=== PATIENT | male | born 1945 | race African-American/Black ===

== ENCOUNTER 2016-07-28 19:22 | Emergency (ER) | payer MEDICARE, MEDICAID ==
[~2016-07-28] VITALS: Ht 177.8 cm; Wt 83.0 kg
[~2016-07-28 19:22] MED LIST: ASPI-1035 PO; DOXA2TAB2 PO; LOSA100T14 PO; NEPVIT PO; [UNRECOGNIZED DRUG - OTHER] PO
[2016-07-28] MEDS ORDERED: SODIUM CHLORIDE 0.9% 1,000 ML IV ONE (20:29)
[2016-07-28 20:42] LABS: CLARITY URINE CLEAR (CLEAR); COLOR URINE YELLOW (YELLOW); GLUCOSE URINE NEGATIVE (NEGATIVE); KETONES URINE NEGATIVE (NEGATIVE); LEUKOCYTE ESTERASE URINE TRACE (NEGATIVE); NITRITE URINE NEGATIVE (NEGATIVE); OCCULT BLOOD URINE NEGATIVE (NEGATIVE); PH URINE 5.5 (4.5-8.0); PROTEIN URINE NEGATIVE (NEGATIVE); SPECIFIC GRAVITY URINE 1.017 (1.005-1.030); UROBILINOGEN URINE 0.2 E.U./dL (0.2-1.0)
[2016-07-28 20:51] LABS: BASOPHILS % 0.7 % (0.0-2.0); HEMATOCRIT. 36.2 % (42.0-52.0); HEMOGLOBIN. 12.1 g/dL (14.0-18.0); LYMPHOCYTES % 21.1 % (20.0-50.0); MEAN CORPUSCULAR HEMOGLOBIN 29.9 pg (28.0-32.0); MEAN CORPUSCULAR HGB CONC 33.4 g/dL (31.0-37.0); MEAN CORPUSCULAR VOLUME 89.5 fL (80.0-94.0); MEAN PLATELET VOLUME 7.3 fl (7.4-10.4); MONOCYTES % 6.8 % (2.0-8.0); NEUTROPHILS % 66.4 % (40.0-76.0); PLATELET 182 x1000/uL (130-400); RED BLOOD CELL COUNT 4.05 mill/uL (4.7-6.1); RED CELL DISTRIBUTION WIDTH 14.6 % (11.6-14.6); WHITE BLOOD COUNT 4.8 x1000/uL (4.5-11.0)
[2016-07-28 20:54] LABS: CHLORIDE 108 mEq/L (98-107)
[2016-07-28 20:59] LABS: INR 1.1; PROTHROMBIN TIME 11.1 sec
[2016-07-28 21:03] LABS: ALANINE AMINOTRANSFERASE 19 IU/L (13-61); ALBUMIN 3.8 g/dL (3.4-5.0); ANION GAP 12; CALCIUM 8.8 mg/dL (8.5-10.1); CARBON DIOXIDE 25 mEq/L (21-32); INDEX HEMOLYSI 1 (1-3); INDEX ICTERIC 1 (1-4); INDEX LIPEMIC 1 (1-3); LIPASE 109 IU/L (73-393); UREA NITROGEN BLOOD 13 mg/dL (7-21); eGFR > 60 mL/min (>60)
[2016-07-28 21:05] LABS: BACTERIA URINE TRACE; RBC URINE NONE SEEN /hpf (0-2); SQUAMOUS EPITHELIAL CELL URINE RARE /lpf (RARE/1+); WBC URINE 0-2 /hpf (0-2)
[2016-07-28 21:06] LABS: TROPONIN I < 0.02 ng/mL (0.00-0.04)
[2016-07-28 22:00] VITALS: BP 160/99
== END 2016-07-28 23:46 | disposition home or self-care (01) ==
LOC: ER 19:22
DX: N28.9 Disorder of kidney and ureter, unspecified (principal); R51 Headache; M54.5 Low back pain; I10 Essential (primary) hypertension; I45.10 Unspecified right bundle-branch block; E78.00 Pure hypercholesterolemia, unspecified; Z85.53 Personal history of malignant neoplasm of renal pelvis; Z90.5 Acquired absence of kidney; Z88.6 Allergy status to analgesic agent; Z88.3 Allergy status to other anti-infective agents; Z86.73 Personal history of transient ischemic attack (TIA), and cerebral infarction without residual deficits
CPT/HCPCS: 36415; 74176; 80053; 81001; 83605; 83690; 84484; 85025; 85610; 93005; 96360; 96361; 99285; J7030

== ENCOUNTER 2016-11-28 18:10 | Inpatient (IN) | payer MEDICARE, MEDICAID ==
[~2016-11-28] VITALS: Ht 177.8 cm; Wt 81.2 kg
[~2016-11-28 18:10] MED LIST changes: -ASPI-1035 PO; +ASPI-1159 PO; +HYDR12.54 PO; +SULF200O PO; +TRAM50TA3 PO; -[UNRECOGNIZED DRUG - OTHER] PO
[2016-11-28] MEDS ORDERED: ASPIRIN 325MG EC TABLET PO ONE (20:30)
[2016-11-28] MEDS ORDERED: LOSARTAN POTASSIUM 50 MG TABLET PO ONE (20:30)
[2016-11-28 20:45] LABS: BASOPHILS % 0.6 % (0.0-2.0); EOSINOPHILS % 4.5 % (0.0-5.0); HEMATOCRIT. 32.5 % (42.0-52.0); LYMPHOCYTES % 21.4 % (20.0-50.0); MEAN CORPUSCULAR HEMOGLOBIN 29.8 pg (28.0-32.0); MEAN CORPUSCULAR VOLUME 87.9 fL (80.0-94.0); MONOCYTES % 8.4 % (2.0-8.0); NEUTROPHILS % 65.1 % (40.0-76.0); PLATELET 145 x1000/uL (130-400); RED CELL DISTRIBUTION WIDTH 14.9 % (11.6-14.6)
[2016-11-28 20:52] LABS: INR 1.1; PROTHROMBIN TIME 11.2 sec
[2016-11-28 20:53] LABS: CHLORIDE 108 mEq/L (98-107)
[2016-11-28 21:02] LABS: CARBON DIOXIDE 26 mEq/L (21-32); TROPONIN I < 0.02 ng/mL (0.00-0.04)
[2016-11-29 00:18] LABS: CLARITY URINE CLEAR (CLEAR); COLOR URINE YELLOW (YELLOW); GLUCOSE URINE NEGATIVE (NEGATIVE); KETONES URINE NEGATIVE (NEGATIVE); LEUKOCYTE ESTERASE URINE NEGATIVE (NEGATIVE); NITRITE URINE NEGATIVE (NEGATIVE); OCCULT BLOOD URINE NEGATIVE (NEGATIVE); PH URINE 5.5 (4.5-8.0); PROTEIN URINE NEGATIVE (NEGATIVE); SPECIFIC GRAVITY URINE 1.012 (1.005-1.030); UROBILINOGEN URINE 0.2 E.U./dL (0.2-1.0)
[2016-11-29 00:38] LABS: *AMPHETAMINES SCREEN URINE NEGATIVE (NEGATIVE); *BARBITURATES SCREEN URINE NEGATIVE (NEGATIVE); *BENZODIAZEPINES SCREEN URINE NEGATIVE (NEGATIVE); *COCAINE SCREEN URINE NEGATIVE (NEGATIVE); CANNABINOID URINE SCREEN NEGATIVE (NEGATIVE); METHADONE URINE SCREEN NEGATIVE (NEGATIVE); OPIATES URINE SCREEN NEGATIVE (NEGATIVE); PHENCYCLIDINE URINE SCREEN NEGATIVE (NEGATIVE)
[2016-11-29] MEDS ORDERED: FUROSEMIDE 20MG TABLET PO ONE (02:45)
[2016-11-29 05:00] VITALS: BP 155/79
[2016-11-29 05:33] VITALS: BP 155/79
[2016-11-29 08:00] VITALS: BP 162/81
[2016-11-29] MEDS: ENOXAPARIN 40MG/0.4ML SYR SUBCUT SCH (08:43)
[2016-11-29] MEDS: BISACODYL 5MG TABLET PO SCH (08:43)
[2016-11-29] MEDS: FUROSEMIDE 40MG TABLET PO SCH ×2 (08:45→20:15)
[2016-11-29] MEDS ORDERED: LACTULOSE 20G/30ML UDC PO SCH (09:00)
[2016-11-29 12:04] VITALS: BP 141/99
[2016-11-29 16:00] VITALS: BP 151/85
[2016-11-29 20:00] VITALS: BP 132/77
[2016-11-29 20:05] LABS: EOSINOPHILS % 3.2 % (0.0-5.0); HEMATOCRIT. 34.2 % (42.0-52.0); HEMOGLOBIN. 11.4 g/dL (14.0-18.0); LYMPHOCYTES % 18.7 % (20.0-50.0); MEAN CORPUSCULAR HEMOGLOBIN 29.7 pg (28.0-32.0); MEAN CORPUSCULAR VOLUME 89.2 fL (80.0-94.0); MEAN PLATELET VOLUME 8.1 fl (7.4-10.4); MONOCYTES % 6.7 % (2.0-8.0); NEUTROPHILS % 70.4 % (40.0-76.0); PLATELET 161 x1000/uL (130-400); RED BLOOD CELL COUNT 3.83 mill/uL (4.7-6.1); RED CELL DISTRIBUTION WIDTH 14.8 % (11.6-14.6)
[2016-11-29 20:11] LABS: CARBON DIOXIDE 26 mEq/L (21-32); CHLORIDE 104 mEq/L (98-107)
[2016-11-30] VITALS: BP 119/82
[2016-11-30 03:51] VITALS: BP 126/68
[2016-11-30 08:00] VITALS: BP 147/90
[2016-11-30] MEDS: BISACODYL 5MG TABLET PO SCH (08:45)
[2016-11-30] MEDS: ENOXAPARIN 40MG/0.4ML SYR SUBCUT SCH (08:45)
[2016-11-30] MEDS: FUROSEMIDE 40MG TABLET PO SCH (08:45)
[2016-11-30 12:00] VITALS: BP 119/78
[2016-11-30 15:16] VITALS: BP 119/78
[2016-11-30 16:00] VITALS: BP 123/85
== END 2016-11-30 16:43 | disposition home or self-care (01) | DRG 194 ==
LOC: ER 18:10 → 5WST 11-29 02:17 → EDBEDREQ 11-29 02:30
PROVIDERS: ADMIT Family Medicine; ATTEND Family Medicine
DX: I13.0 Hypertensive heart and chronic kidney disease with heart failure and stage 1 through stage 4 chronic kidney disease, or unspecified chronic kidney disease (principal); E86.0 Dehydration; I50.23 Acute on chronic systolic (congestive) heart failure; D64.9 Anemia, unspecified; E78.5 Hyperlipidemia, unspecified; I25.10 Atherosclerotic heart disease of native coronary artery without angina pectoris; N18.9 Chronic kidney disease, unspecified; Z85.528 Personal history of other malignant neoplasm of kidney; Z90.5 Acquired absence of kidney; Z87.891 Personal history of nicotine dependence; Z87.440 Personal history of urinary (tract) infections; Z88.6 Allergy status to analgesic agent; Z88.1 Allergy status to other antibiotic agents; Z79.899 Other long term (current) drug therapy; Z79.82 Long term (current) use of aspirin
CPT/HCPCS: 36415; 71010; 80053; 80305; 81003; 83880; 84484; 85025; 85610; 93005; 99285; J1650

== ENCOUNTER 2018-07-06 20:41 | Emergency (ER) | payer MEDICARE, MEDICAID ==
[~2018-07-06] VITALS: Ht 177.8 cm; Wt 81.0 kg
[~2018-07-06 20:41] MED LIST changes: -SULF200O PO; +SULF473O3 PO
[2018-07-07] MEDS ORDERED: ACETAMINOPHEN 325MG TABLET PO STA (01:34)
[2018-07-07 02:05] LABS: BASOPHILS % 0.6 % (0.0-2.0); EOSINOPHILS % 3.3 % (0.0-5.0); HEMATOCRIT. 35.1 % (42.0-52.0); HEMOGLOBIN. 11.5 g/dL (14.0-18.0); LYMPHOCYTES % 21.7 % (20.0-50.0); MEAN CORPUSCULAR HEMOGLOBIN 29.3 pg (28.0-32.0); MEAN CORPUSCULAR VOLUME 89.9 fL (80.0-94.0); MEAN PLATELET VOLUME 6.7 fl (7.4-10.4); MONOCYTES % 7.8 % (2.0-8.0); NEUTROPHILS % 66.6 % (40.0-76.0); PLATELET 180 x1000/uL (130-400); RED BLOOD CELL COUNT 3.91 mill/uL (4.7-6.1); RED CELL DISTRIBUTION WIDTH 15.5 % (11.6-14.6)
[2018-07-07 02:06] LABS: CHLORIDE 105 mEq/L (98-107)
[2018-07-07 03:00] VITALS: BP 134/72
== END 2018-07-07 03:00 | disposition home or self-care (01) ==
LOC: ER 20:41 → CANBEDREQ 07-07 18:00
DX: R07.89 Other chest pain (principal); R51 Headache; I10 Essential (primary) hypertension; Z86.73 Personal history of transient ischemic attack (TIA), and cerebral infarction without residual deficits; Z88.1 Allergy status to other antibiotic agents; Z88.6 Allergy status to analgesic agent; Z79.899 Other long term (current) drug therapy
CPT/HCPCS: 36415; 71045; 83880; 84484; 93005; 99284

== ENCOUNTER 2018-07-30 09:37 | Inpatient (IN) | payer MEDICARE, MEDICAID ==
[~2018-07-30] VITALS: Ht 177.8 cm; Wt 78.9 kg
[2018-07-30] MEDS ORDERED: SULF-292 PO (09:47)
[2018-07-30] MEDS ORDERED: SODIUM CHLORIDE 0.9% 1000ML BAG (SEPSIS BOLUS) IV ONE (11:15)
[2018-07-30 12:24] LABS: BASOPHILS % 0.7 % (0.0-2.0); EOSINOPHILS % 4.4 % (0.0-5.0); HEMATOCRIT. 34.7 % (42.0-52.0); HEMOGLOBIN. 11.3 g/dL (14.0-18.0); LYMPHOCYTES % 16.2 % (20.0-50.0); MEAN CORPUSCULAR HEMOGLOBIN 29.3 pg (28.0-32.0); MEAN CORPUSCULAR VOLUME 89.5 fL (80.0-94.0); MEAN PLATELET VOLUME 7.4 fl (7.4-10.4); MONOCYTES % 7.5 % (2.0-8.0); NEUTROPHILS % 71.2 % (40.0-76.0); PLATELET 181 x1000/uL (130-400); RED BLOOD CELL COUNT 3.88 mill/uL (4.7-6.1); RED CELL DISTRIBUTION WIDTH 15.3 % (11.6-14.6)
[2018-07-30 12:27] LABS: CHLORIDE 105 mEq/L (98-107)
[2018-07-30] MEDS ORDERED: NA PHOS,M-B/NA PHOS,DI-BA ENEMA 118ML PR PRN (22:00)
[2018-07-30] MEDS ORDERED: LORAZEPAM 2MG/ML CPJ IV PRN (22:00)
[2018-07-30] MEDS ORDERED: ONDANSETRON HCL 4MG/2ML INJ IV PRN (22:00)
[2018-07-30] MEDS ORDERED: GUAIFENESIN 200MG/10ML SUGAR FREE UDC PO PRN (22:00)
[2018-07-30] MEDS ORDERED: CLONIDINE 0.1MG TABLET PO PRN (22:00)
[2018-07-30] MEDS ORDERED: MAGNESIUM/ALUMINUM HYDROXIDE/SIMETHICONE 30ML UDC PO PRN (22:00)
[2018-07-30] MEDS ORDERED: DOCUSATE SODIUM 100MG CAPSULE PO PRN (22:00)
[2018-07-30] MEDS ORDERED: DIPHENHYDRAMINE 50MG/ML VIAL IV PRN (22:00)
[2018-07-30] MEDS ORDERED: IPRATROPIUM/ALBUTEROL 0.5-3(2.5)MG/3ML NEB INH PRN (22:00)
[2018-07-30] MEDS ORDERED: ACETAMINOPHEN 325MG TABLET PO PRN (22:00)
[2018-07-30] MEDS ORDERED: HYDROMORPHONE HCL/PF 2MG/ML CPJ IV PRN (22:00)
[2018-07-30 22:52] VITALS: BP 130/77
[2018-07-31] MEDS: SODIUM CHLORIDE 0.45% 1,000 ML IV SCH ×2 (00:11→23:23)
[2018-07-31 00:25] LABS: CHLORIDE 110 mEq/L (98-107)
[2018-07-31 04:00] VITALS: BP 100/55
[2018-07-31 07:11] LABS: BASOPHILS % 0.7 % (0.0-2.0); EOSINOPHILS % 4.4 % (0.0-5.0); HEMATOCRIT. 30.6 % (42.0-52.0); HEMOGLOBIN. 10.1 g/dL (14.0-18.0); LYMPHOCYTES % 21.2 % (20.0-50.0); MEAN CORPUSCULAR HEMOGLOBIN 29.4 pg (28.0-32.0); MEAN CORPUSCULAR VOLUME 89.2 fL (80.0-94.0); MONOCYTES % 9.1 % (2.0-8.0); NEUTROPHILS % 64.6 % (40.0-76.0); PLATELET 160 x1000/uL (130-400); RED BLOOD CELL COUNT 3.43 mill/uL (4.7-6.1); RED CELL DISTRIBUTION WIDTH 15.3 % (11.6-14.6)
[2018-07-31 08:00] VITALS: BP 105/50
[2018-07-31 08:00] LABS: CHLORIDE 109 mEq/L (98-107)
[2018-07-31 08:09] LABS: LDL CHOLESTEROL 102 mg/dL (5-100)
[2018-07-31 08:11] LABS: HDL CHOLESTEROL 43 mg/dL (40-59); T4 FREE 1.02 ng/dL (0.76-1.46)
[2018-07-31] MEDS: ASPIRIN 81MG EC TABLET PO SCH (09:22)
[2018-07-31 12:00] VITALS: BP 131/69
[2018-07-31] MEDS ORDERED: HYDROMORPHONE HCL/PF 2MG/ML CPJ IV PRN (12:00)
[2018-07-31] MEDS: SULFAMETHOXAZOLE/TRIMETHOPRIM 400/80MG TAB PO SCH ×2 (13:38→23:22)
[2018-07-31 16:00] VITALS: BP 104/65
[2018-07-31 19:59] LABS: CLARITY URINE CLEAR (CLEAR); COLOR URINE YELLOW (YELLOW); KETONES URINE NEGATIVE (NEGATIVE); LEUKOCYTE ESTERASE URINE TRACE (NEGATIVE); NITRITE URINE NEGATIVE (NEGATIVE); OCCULT BLOOD URINE NEGATIVE (NEGATIVE); PH URINE 5.5 (4.5-8.0); PROTEIN URINE NEGATIVE (NEGATIVE); SPECIFIC GRAVITY URINE 1.006 (1.005-1.030); UROBILINOGEN URINE 0.2 E.U./dL (0.2-1.0)
[2018-07-31 20:00] VITALS: BP 101/46
[2018-08-01] VITALS: BP 133/70
[2018-08-01 04:00] VITALS: BP 110/51
[2018-08-01 05:41] LABS: BASOPHILS % 1.6 % (0.0-2.0); EOSINOPHILS % 4.6 % (0.0-5.0); HEMATOCRIT. 29.8 % (42.0-52.0); HEMOGLOBIN. 9.9 g/dL (14.0-18.0); LYMPHOCYTES % 29.6 % (20.0-50.0); MEAN CORPUSCULAR HEMOGLOBIN 29.6 pg (28.0-32.0); MEAN CORPUSCULAR VOLUME 89.2 fL (80.0-94.0); MEAN PLATELET VOLUME 7.4 fl (7.4-10.4); MONOCYTES % 10.1 % (2.0-8.0); NEUTROPHILS % 54.1 % (40.0-76.0); PLATELET 163 x1000/uL (130-400); RED BLOOD CELL COUNT 3.34 mill/uL (4.7-6.1); RED CELL DISTRIBUTION WIDTH 15.3 % (11.6-14.6)
[2018-08-01 08:00] VITALS: BP 100/47
[2018-08-01] MEDS: ASPIRIN 81MG EC TABLET PO SCH (09:16)
[2018-08-01] MEDS: SULFAMETHOXAZOLE/TRIMETHOPRIM 400/80MG TAB PO SCH (09:16)
[2018-08-01 12:00] VITALS: BP 112/53
[2018-08-01 14:25] VITALS: BP 112/53
[2018-08-01 16:00] VITALS: BP 154/78
== END 2018-08-01 16:59 | disposition home or self-care (01) | DRG 52 ==
LOC: ER 10:04 → 7WST 17:30 → EDBEDREQ 17:32 → ENRESERV 22:17
PROVIDERS: ADMIT Internal Medicine; ATTEND Internal Medicine
DX: G93.41 Metabolic encephalopathy (principal); N17.0 Acute kidney failure with tubular necrosis; D64.9 Anemia, unspecified; N39.0 Urinary tract infection, site not specified; M13.862 Other specified arthritis, left knee; M13.861 Other specified arthritis, right knee; I12.9 Hypertensive chronic kidney disease with stage 1 through stage 4 chronic kidney disease, or unspecified chronic kidney disease; N18.9 Chronic kidney disease, unspecified; Z86.73 Personal history of transient ischemic attack (TIA), and cerebral infarction without residual deficits; Z87.891 Personal history of nicotine dependence; Z90.5 Acquired absence of kidney; Z88.1 Allergy status to other antibiotic agents; Z88.8 Allergy status to other drugs, medicaments and biological substances; Z79.82 Long term (current) use of aspirin; Z79.899 Other long term (current) drug therapy
CPT/HCPCS: 36415; 71045; 80048; 80061; 83605; 83735; 83880; 84145; 84439; 84443; 84484; 93005; 93970; 99285; C1893; J7030

== ENCOUNTER 2020-01-25 19:02 | Emergency (ER) | payer MEDICARE, MEDICAID ==
[~2020-01-25] VITALS: Ht 177.8 cm; Wt 84.0 kg
[~2020-01-25 19:02] MED LIST changes: -ASPI-1159 PO; +ASPI-1497 PO; -LOSA100T14 PO; +LOSA100T32 PO; +SULF-292 PO; -SULF473O3 PO
[2020-01-25] MEDS ORDERED: ASPIRIN 81MG TABLET PO ONE (22:30)
[2020-01-25 22:59] LABS: BASOPHILS % 0.7 % (0.0-2.0); EOSINOPHILS % 3.2 % (0.0-5.0); HEMATOCRIT. 35.8 % (42.0-52.0); LYMPHOCYTES % 25.3 % (20.0-50.0); MEAN CORPUSCULAR HEMOGLOBIN 30.2 pg (28.0-32.0); MEAN CORPUSCULAR VOLUME 90.2 fL (80.0-94.0); MONOCYTES % 6.4 % (2.0-8.0); NEUTROPHILS % 64.4 % (40.0-76.0); PLATELET 164 x1000/uL (130-400); RED BLOOD CELL COUNT 3.97 mill/uL (4.7-6.1)
[2020-01-25 23:01] LABS: CLARITY URINE CLEAR (CLEAR); COLOR URINE YELLOW (YELLOW); KETONES URINE NEGATIVE (NEGATIVE); LEUKOCYTE ESTERASE URINE TRACE (NEGATIVE); NITRITE URINE NEGATIVE (NEGATIVE); OCCULT BLOOD URINE NEGATIVE (NEGATIVE); PROTEIN URINE NEGATIVE (NEGATIVE); SPECIFIC GRAVITY URINE 1.013 (1.005-1.030); UROBILINOGEN URINE 0.2 E.U./dL (0.2-1.0)
[2020-01-25 23:07] LABS: CHLORIDE 108 mEq/L (98-107)
[2020-01-25 23:11] LABS: ETHANOL BLOOD < 10 mg/dL
[2020-01-25 23:15] LABS: *AMPHETAMINES SCREEN URINE NEGATIVE (NEGATIVE); *BARBITURATES SCREEN URINE NEGATIVE (NEGATIVE); *BENZODIAZEPINES SCREEN URINE NEGATIVE (NEGATIVE); *COCAINE SCREEN URINE NEGATIVE (NEGATIVE)
[2020-01-25 23:16] LABS: CANNABINOID URINE SCREEN NEGATIVE (NEGATIVE); METHADONE URINE SCREEN NEGATIVE (NEGATIVE); OPIATES URINE SCREEN NEGATIVE (NEGATIVE); PHENCYCLIDINE URINE SCREEN NEGATIVE (NEGATIVE)
[2020-01-26 00:30] VITALS: BP 144/69
== END 2020-01-26 00:45 | disposition home or self-care (01) ==
LOC: ER 19:02
DX: I12.0 Hypertensive chronic kidney disease with stage 5 chronic kidney disease or end stage renal disease (principal); N18.6 End stage renal disease; R00.1 Bradycardia, unspecified; Z88.1 Allergy status to other antibiotic agents; Z88.6 Allergy status to analgesic agent; Z79.899 Other long term (current) drug therapy; Z79.82 Long term (current) use of aspirin; Z98.890 Other specified postprocedural states
CPT/HCPCS: 36415; 71045; 74176; 80053; 80305; 80320; 81003; 83605; 83690; 83880; 84484; 85025; 93005; 99285; Z7610; G0480

== ENCOUNTER 2020-01-28 10:48 | Inpatient (IN) | payer MEDICARE, MEDICAID ==
[~2020-01-28] VITALS: Ht 177.8 cm; Wt 83.9 kg
[2020-01-28] MEDS ORDERED: ACETAMINOPHEN 325MG TABLET PO ONE (11:45)
[2020-01-28 12:01] LABS: BASOPHILS % 0.9 % (0.0-2.0); EOSINOPHILS % 4.1 % (0.0-5.0); HEMATOCRIT. 35.5 % (42.0-52.0); HEMOGLOBIN. 11.7 g/dL (14.0-18.0); LYMPHOCYTES % 26.4 % (20.0-50.0); MEAN CORPUSCULAR HEMOGLOBIN 29.7 pg (28.0-32.0); MEAN CORPUSCULAR VOLUME 90.1 fL (80.0-94.0); MEAN PLATELET VOLUME 6.8 fl (7.4-10.4); MONOCYTES % 9.2 % (2.0-8.0); NEUTROPHILS % 59.4 % (40.0-76.0); PLATELET 179 x1000/uL (130-400); RED BLOOD CELL COUNT 3.94 mill/uL (4.7-6.1); RED CELL DISTRIBUTION WIDTH 15.8 % (11.6-14.6)
[2020-01-28 12:04] LABS: CHLORIDE 106 mEq/L (98-107)
[2020-01-28 12:38] LABS: CLARITY URINE CLEAR (CLEAR); COLOR URINE YELLOW (YELLOW); KETONES URINE NEGATIVE (NEGATIVE); LEUKOCYTE ESTERASE URINE TRACE (NEGATIVE); NITRITE URINE NEGATIVE (NEGATIVE); OCCULT BLOOD URINE NEGATIVE (NEGATIVE); PROTEIN URINE NEGATIVE (NEGATIVE); SPECIFIC GRAVITY URINE 1.016 (1.005-1.030)
[2020-01-28] MEDS ORDERED: SODIUM CHLORIDE 0.9% 1,000 ML IV ONE (12:44)
[2020-01-28] MEDS ORDERED: ONDANSETRON HCL 4MG/2ML INJ IV STA (12:44)
[2020-01-28] MEDS ORDERED: MORPHINE SULFATE 4 MG/ML CPJ (NOT FOR IM USE) IV STA (12:44)
[2020-01-28] MEDS ORDERED: SULFAMETHOXAZOLE/TRIMETHOPRIM 800/160MG TABLET PO ONE (13:00)
[2020-01-28] MEDS ORDERED: SODIUM CHLORIDE 0.9% 1,000 ML IV SCH (13:00)
[2020-01-28] MEDS ORDERED: SULFAMETHOXAZOLE/TRIMETHOPRIM 400/80MG TAB PO ONE (13:15)
[2020-01-28] MEDS ORDERED: CLONIDINE 0.1MG TABLET PO PRN (13:45)
[2020-01-28] MEDS ORDERED: ONDANSETRON HCL 4MG/2ML INJ IV PRN (13:45)
[2020-01-28] MEDS ORDERED: HYDROCODONE/ACETAMINOPHEN 5/325MG TABLET PO PRN (13:45)
[2020-01-28] MEDS ORDERED: IPRATROPIUM/ALBUTEROL 0.5-3(2.5)MG/3ML NEB NEB PRN (13:45)
[2020-01-28] MEDS ORDERED: DIPHENHYDRAMINE 50MG/ML VIAL IV PRN (13:45)
[2020-01-28] MEDS ORDERED: DOCUSATE SODIUM 100MG CAPSULE PO PRN (13:45)
[2020-01-28] MEDS ORDERED: LORAZEPAM 2MG/ML CPJ IV PRN (13:45)
[2020-01-28] MEDS ORDERED: GUAIFENESIN 200MG/10ML SUGAR FREE UDC PO PRN (13:45)
[2020-01-28] MEDS ORDERED: MORPHINE SULFATE 2 MG/ML CPJ (NOT FOR IM USE) IV PRN (13:45)
[2020-01-28] MEDS ORDERED: NA PHOS,M-B/NA PHOS,DI-BA ENEMA 118ML PR PRN (13:45)
[2020-01-28] MEDS ORDERED: ACETAMINOPHEN 325MG TABLET PO PRN (13:45)
[2020-01-28] MEDS ORDERED: MAGNESIUM/ALUMINUM HYDROXIDE/SIMETHICONE 30ML UDC PO PRN (13:45)
[2020-01-28] MEDS: SODIUM CHLORIDE 0.45% 1,000 ML IV SCH (14:00)
[2020-01-28 14:03] LABS: CREATINE KINASE 651 IU/L (39-308)
[2020-01-28 15:34] LABS: CHLORIDE 109 mEq/L (98-107)
[2020-01-28 17:26] VITALS: BP 134/77
[2020-01-28] MEDS: ENOXAPARIN 40MG/0.4ML SYR SUBCUT SCH (17:50)
[2020-01-28 20:00] VITALS: BP 118/57
[2020-01-29] VITALS: BP 114/54
[2020-01-29 04:00] VITALS: BP 109/57
[2020-01-29 06:43] LABS: BASOPHILS % 0.9 % (0.0-2.0); EOSINOPHILS % 4.1 % (0.0-5.0); HEMATOCRIT. 34.2 % (42.0-52.0); HEMOGLOBIN. 11.4 g/dL (14.0-18.0); LYMPHOCYTES % 23.8 % (20.0-50.0); MEAN CORPUSCULAR HEMOGLOBIN 30.1 pg (28.0-32.0); MEAN CORPUSCULAR VOLUME 90.2 fL (80.0-94.0); MEAN PLATELET VOLUME 7.3 fl (7.4-10.4); MONOCYTES % 8.1 % (2.0-8.0); NEUTROPHILS % 63.1 % (40.0-76.0); PLATELET 172 x1000/uL (130-400); RED CELL DISTRIBUTION WIDTH 15.9 % (11.6-14.6)
[2020-01-29 08:06] LABS: CHLORIDE 109 mEq/L (98-107)
[2020-01-29 08:17] LABS: T4 FREE 0.93 ng/dL (0.76-1.46)
[2020-01-29] MEDS: ASPIRIN 81MG EC TABLET PO SCH (09:35)
[2020-01-29 11:55] VITALS: BP 112/55
[2020-01-29] MEDS ORDERED: POLYETHYLENE GLYCOL 3350 (17GM) 1 DOSE PACK PO NR (12:15)
[2020-01-29] MEDS ORDERED: BISACODYL 10MG SUPP PR PRN (12:15)
[2020-01-29] MEDS: SODIUM CHLORIDE 0.45% 1,000 ML IV SCH (14:00)
[2020-01-29] MEDS: ENOXAPARIN 40MG/0.4ML SYR SUBCUT SCH (15:28)
[2020-01-29 16:00] VITALS: BP 131/74
[2020-01-29 20:00] VITALS: BP 107/50
[2020-01-30] VITALS (7 sets, daily range): BP systolic 111–138; BP diastolic 59–71
[2020-01-30] MEDS: ASPIRIN 81MG EC TABLET PO SCH (08:57)
[2020-01-30] MEDS: ENOXAPARIN 40MG/0.4ML SYR SUBCUT SCH (14:00)
== END 2020-01-30 17:55 | disposition home or self-care (01) | DRG 254 ==
LOC: ER 10:48 → 8WST 13:23 → EDBEDREQ 13:28 → ENRESERV 14:47
PROVIDERS: ADMIT Internal Medicine; ATTEND Internal Medicine
DX: K59.00 Constipation, unspecified (principal); N17.9 Acute kidney failure, unspecified; K52.9 Noninfective gastroenteritis and colitis, unspecified; K86.1 Other chronic pancreatitis; N39.0 Urinary tract infection, site not specified; N18.9 Chronic kidney disease, unspecified; I25.10 Atherosclerotic heart disease of native coronary artery without angina pectoris; E78.5 Hyperlipidemia, unspecified; I44.0 Atrioventricular block, first degree; E46 Unspecified protein-calorie malnutrition; E86.0 Dehydration; I12.9 Hypertensive chronic kidney disease with stage 1 through stage 4 chronic kidney disease, or unspecified chronic kidney disease; M48.061 Spinal stenosis, lumbar region without neurogenic claudication; M51.36 Other intervertebral disc degeneration, lumbar region; M19.90 Unspecified osteoarthritis, unspecified site; M60.9 Myositis, unspecified; M62.82 Rhabdomyolysis; M84.40XA Pathological fracture, unspecified site, initial encounter for fracture; Z79.82 Long term (current) use of aspirin; Z79.899 Other long term (current) drug therapy; Z82.49 Family history of ischemic heart disease and other diseases of the circulatory system; Z85.528 Personal history of other malignant neoplasm of kidney; Z86.73 Personal history of transient ischemic attack (TIA), and cerebral infarction without residual deficits; Z87.891 Personal history of nicotine dependence; Z90.5 Acquired absence of kidney; Z88.1 Allergy status to other antibiotic agents; Z88.8 Allergy status to other drugs, medicaments and biological substances
CPT/HCPCS: 36415; 71045; 76700; 80048; 80053; 81003; 82550; 84439; 84443; 84484; 85025; 93005; 99285; J1650; J2270; J2405; J7030

== ENCOUNTER 2020-02-19 18:17 | Inpatient (IN) | payer MEDICARE, MEDICAID ==
[~2020-02-19] VITALS: Ht 177.8 cm; Wt 85.3 kg
[2020-02-19] MEDS ORDERED: SODIUM CHLORIDE 0.9% 1,000 ML IV ONE (19:15)
[2020-02-19 20:06] LABS: CLARITY URINE CLEAR (CLEAR); COLOR URINE YELLOW (YELLOW); KETONES URINE NEGATIVE (NEGATIVE); LEUKOCYTE ESTERASE URINE 1+ (NEGATIVE); NITRITE URINE NEGATIVE (NEGATIVE); OCCULT BLOOD URINE NEGATIVE (NEGATIVE); PROTEIN URINE NEGATIVE (NEGATIVE); SPECIFIC GRAVITY URINE 1.019 (1.005-1.030); UROBILINOGEN URINE 0.2 E.U./dL (0.2-1.0)
[2020-02-19 20:42] LABS: BASOPHILS % 0.6 % (0.0-2.0); HEMOGLOBIN. 11.6 g/dL (14.0-18.0); LYMPHOCYTES % 24.2 % (20.0-50.0); MEAN CORPUSCULAR HEMOGLOBIN 30.3 pg (28.0-32.0); MEAN CORPUSCULAR VOLUME 91.3 fL (80.0-94.0); MEAN PLATELET VOLUME 7.1 fl (7.4-10.4); MONOCYTES % 7.8 % (2.0-8.0); NEUTROPHILS % 64.4 % (40.0-76.0); PLATELET 172 x1000/uL (130-400); RED BLOOD CELL COUNT 3.83 mill/uL (4.7-6.1); RED CELL DISTRIBUTION WIDTH 16.1 % (11.6-14.6)
[2020-02-19 20:45] LABS: CHLORIDE 108 mEq/L (98-107)
[2020-02-19 20:49] LABS: INR 1.1; PARTIAL THROMBOPLASTIN TIME 26.7 sec (23.4-31.0); PROTHROMBIN TIME 11.1 sec (9.6-11.0)
[2020-02-19] MEDS ORDERED: SULFAMETHOXAZOLE/TRIMETHOPRIM 800/160MG TABLET PO ONE (21:30)
[2020-02-19] MEDS ORDERED: ASPIRIN 81MG TABLET PO ONE (21:30)
[2020-02-19] MEDS ORDERED: LORAZEPAM 2MG/ML CPJ IV PRN (23:15)
[2020-02-19] MEDS ORDERED: ACETAMINOPHEN 325MG TABLET PO PRN (23:15)
[2020-02-19] MEDS ORDERED: CLONIDINE 0.1MG TABLET PO PRN (23:15)
[2020-02-19] MEDS ORDERED: HYDROCODONE/ACETAMINOPHEN 5/325MG TABLET PO PRN (23:15)
[2020-02-19] MEDS ORDERED: DOCUSATE SODIUM 100MG CAPSULE PO PRN (23:15)
[2020-02-19] MEDS ORDERED: DIPHENHYDRAMINE 50MG/ML VIAL IV PRN (23:15)
[2020-02-19] MEDS ORDERED: NA PHOS,M-B/NA PHOS,DI-BA ENEMA 118ML PR PRN (23:15)
[2020-02-19] MEDS ORDERED: GUAIFENESIN 200MG/10ML SUGAR FREE UDC PO PRN (23:15)
[2020-02-19] MEDS ORDERED: IPRATROPIUM/ALBUTEROL 0.5-3(2.5)MG/3ML NEB NEB PRN (23:15)
[2020-02-19] MEDS ORDERED: MAGNESIUM/ALUMINUM HYDROXIDE/SIMETHICONE 30ML UDC PO PRN (23:15)
[2020-02-19] MEDS ORDERED: ONDANSETRON HCL 4MG/2ML INJ IV PRN (23:15)
[2020-02-20 00:35] VITALS: BP 156/82
[2020-02-20] MEDS: SODIUM CHLORIDE 0.45% 1,000 ML IV SCH ×2 (03:20→20:32)
[2020-02-20 04:00] VITALS: BP 126/68
[2020-02-20 06:21] LABS: BASOPHILS % 0.5 % (0.0-2.0); EOSINOPHILS % 3.2 % (0.0-5.0); HEMATOCRIT. 32.3 % (42.0-52.0); HEMOGLOBIN. 10.7 g/dL (14.0-18.0); MEAN CORPUSCULAR HEMOGLOBIN 30.4 pg (28.0-32.0); MEAN CORPUSCULAR VOLUME 91.4 fL (80.0-94.0); MEAN PLATELET VOLUME 7.1 fl (7.4-10.4); MONOCYTES % 7.4 % (2.0-8.0); NEUTROPHILS % 66.9 % (40.0-76.0); PLATELET 149 x1000/uL (130-400); RED BLOOD CELL COUNT 3.53 mill/uL (4.7-6.1); RED CELL DISTRIBUTION WIDTH 15.8 % (11.6-14.6)
[2020-02-20 06:24] LABS: CHLORIDE 110 mEq/L (98-107)
[2020-02-20 06:36] LABS: LDL CHOLESTEROL 120 mg/dL (5-100)
[2020-02-20 06:37] LABS: HDL CHOLESTEROL 47 mg/dL (40-59)
[2020-02-20 06:38] LABS: T4 FREE 0.86 ng/dL (0.76-1.46)
[2020-02-20 08:00] VITALS: BP 103/64
[2020-02-20] MEDS: ASPIRIN 81MG EC TABLET PO SCH (09:18)
[2020-02-20 12:00] VITALS: BP 123/51
[2020-02-20 16:00] VITALS: BP 129/71
[2020-02-20 20:00] VITALS: BP 111/56
[2020-02-21] VITALS: BP 124/58
[2020-02-21 04:00] VITALS: BP 110/58
[2020-02-21 08:00] VITALS: BP 119/66
[2020-02-21] MEDS: ASPIRIN 81MG EC TABLET PO SCH (08:10)
[2020-02-21 12:00] VITALS: BP 151/75
[2020-02-21] MEDS ORDERED: BISACODYL 10MG SUPP PR NR (12:15)
[2020-02-21] MEDS: SODIUM CHLORIDE 0.45% 1,000 ML IV SCH (15:30)
[2020-02-21 16:00] VITALS: BP 124/63
[2020-02-21 17:00] VITALS: BP 124/63
== END 2020-02-21 18:00 | disposition home health service (06) | DRG 469 ==
LOC: ER 18:17 → 6WST 22:40 → ENRESERV 22:56
PROVIDERS: ADMIT Internal Medicine; ATTEND Internal Medicine
DX: N17.9 Acute kidney failure, unspecified (principal); G45.9 Transient cerebral ischemic attack, unspecified; I12.9 Hypertensive chronic kidney disease with stage 1 through stage 4 chronic kidney disease, or unspecified chronic kidney disease; G93.41 Metabolic encephalopathy; E78.5 Hyperlipidemia, unspecified; N18.9 Chronic kidney disease, unspecified; K86.1 Other chronic pancreatitis; D64.9 Anemia, unspecified; M19.90 Unspecified osteoarthritis, unspecified site; I25.10 Atherosclerotic heart disease of native coronary artery without angina pectoris; E86.0 Dehydration; M62.82 Rhabdomyolysis; Z86.73 Personal history of transient ischemic attack (TIA), and cerebral infarction without residual deficits; Z85.528 Personal history of other malignant neoplasm of kidney; Z88.6 Allergy status to analgesic agent; Z88.1 Allergy status to other antibiotic agents; Z88.0 Allergy status to penicillin; Z79.82 Long term (current) use of aspirin; Z79.899 Other long term (current) drug therapy; Z87.891 Personal history of nicotine dependence
CPT/HCPCS: 36415; 70551; 71045; 80053; 80061; 81003; 83880; 84439; 84443; 84484; 85025; 93005; 99285; J7030

== ENCOUNTER 2020-09-12 02:24 | Emergency (ER) | payer MEDICARE, MEDICAID ==
[~2020-09-12] VITALS: Ht 177.8 cm; Wt 84.0 kg
[~2020-09-12 02:24] MED LIST changes: -NEPVIT PO; -SULF-292 PO; -TRAM50TA3 PO
[2020-09-12 03:29] LABS: BASOPHILS % 0.5 % (0.0-2.0); EOSINOPHILS % 3.6 % (0.0-5.0); HEMATOCRIT. 34.5 % (42.0-52.0); HEMOGLOBIN. 11.5 g/dL (14.0-18.0); LYMPHOCYTES % 25.7 % (20.0-50.0); MEAN CORPUSCULAR HEMOGLOBIN 30.2 pg (28.0-32.0); MEAN CORPUSCULAR VOLUME 90.9 fL (80.0-94.0); MEAN PLATELET VOLUME 6.6 fl (7.4-10.4); MONOCYTES % 9.1 % (2.0-8.0); NEUTROPHILS % 61.1 % (40.0-76.0); PLATELET 174 x1000/uL (130-400); RED BLOOD CELL COUNT 3.79 mill/uL (4.7-6.1); RED CELL DISTRIBUTION WIDTH 15.8 % (11.6-14.6)
[2020-09-12 03:34] LABS: CHLORIDE 109 mEq/L (98-107)
[2020-09-12 05:17] VITALS: BP 144/67
== END 2020-09-12 06:33 | disposition home or self-care (01) ==
LOC: ER 02:24
DX: R07.89 Other chest pain (principal); I10 Essential (primary) hypertension; Z88.6 Allergy status to analgesic agent; Z88.1 Allergy status to other antibiotic agents; Z79.899 Other long term (current) drug therapy
CPT/HCPCS: 36415; 71045; 80053; 83880; 84484; 85025; 93005; 99285

== ENCOUNTER 2022-11-18 09:11 | Inpatient (IN) | payer MEDICARE, MEDICAID ==
[2022-11-18] VITALS (49 sets, daily range): BP systolic 119–152; BP diastolic 5–83; PULSE 48–96; RESP 9–90; TEMP 98–98.5
[~2022-11-18] VITALS: Ht 177.8 cm; Wt 85.8 kg
[~2022-11-18 09:11] MED LIST changes: -LOSA100T32 PO; +LOSA100T33 PO
[2022-11-18] MEDS ORDERED: IOHEXOL-350 100 ML BOTTLE ONE (09:44)
[2022-11-18 09:50] LABS: EOSINOPHILS % 2.6 % (0.0-5.0); HEMATOCRIT. 34.5 % (42.0-52.0); HEMOGLOBIN. 11.6 g/dL (14.0-18.0); LYMPHOCYTES % 18.3 % (20.0-50.0); MEAN CORPUSCULAR HEMOGLOBIN 31.3 pg (28.0-32.0); MEAN CORPUSCULAR VOLUME 93.1 fL (80.0-94.0); MEAN PLATELET VOLUME 6.6 fl (7.4-10.4); MONOCYTES % 10.9 % (2.0-8.0); NEUTROPHILS % 67.2 % (40.0-76.0); PLATELET 179 x1000/uL (130-400); RED CELL DISTRIBUTION WIDTH 16.8 % (11.6-14.6)
[2022-11-18 10:02] LABS: CHLORIDE 107 mEq/L (98-107)
[2022-11-18 10:03] LABS: PROTHROMBIN TIME 11.1 sec (9.6-11.0)
[2022-11-18 10:12] LABS: ETHANOL BLOOD < 10 mg/dL (-10)
[2022-11-18] MEDS ORDERED: TENECTEPLASE 50MG/VIAL IV ONE (10:15)
[2022-11-18] MEDS ORDERED: ASPIRIN 325MG EC TABLET PO ONE (10:15)
[2022-11-18] MEDS ORDERED: TENECTEPLASE 50MG/VIAL IV NR (10:15)
[2022-11-18] MEDS ORDERED: *TENECTEPLASE FOR AIS XX SCH (10:15)
[2022-11-18] MEDS ORDERED: ONDANSETRON HCL 4MG/2ML INJ IV PRN (11:15)
[2022-11-18] MEDS ORDERED: CLONIDINE 0.1MG TABLET PO PRN (11:15)
[2022-11-18] MEDS ORDERED: ACETAMINOPHEN 325MG TABLET PO PRN (11:15)
[2022-11-18] MEDS ORDERED: GUAIFENESIN 200MG/10ML SUGAR FREE UDC PO PRN (11:15)
[2022-11-18] MEDS ORDERED: IPRATROPIUM/ALBUTEROL 0.5-3(2.5)MG/3ML NEB NEB PRN (11:15)
[2022-11-18] MEDS ORDERED: MAGNESIUM/ALUMINUM HYDROXIDE/SIMETHICONE 30ML UDC PO PRN (11:15)
[2022-11-18] MEDS ORDERED: NITROGLYCERIN 0.4MG TABLET SL SL PRN (11:15)
[2022-11-18 12:05] LABS: T4 FREE 1.04 ng/dL (0.76-1.46)
[2022-11-18 12:20] LABS: VITAMIN B12 SERUM 656 pg/mL (211-911)
[2022-11-18 12:31] LABS: FOLIC ACID (FOLATE) SERUM > 20.00 ng/mL (>5.38)
[2022-11-18] MEDS: PANTOPRAZOLE SODIUM 40 MG/VIAL IV SCH (12:40)
[2022-11-18] MEDS: DEXT 5%/LACTATED RINGERS 1,000 ML IV SCH (12:40)
[2022-11-18] MEDS: ACETAMINOPHEN 325MG TABLET PO PRN (12:41)
[2022-11-18 17:45] LABS: CREATINE KINASE MB FRACTION 3.2 ng/mL (0.5-3.6)
[2022-11-18 18:22] LABS: CLARITY URINE CLEAR (CLEAR); COLOR URINE YELLOW (YELLOW); KETONES URINE NEGATIVE (NEGATIVE); LEUKOCYTE ESTERASE URINE NEGATIVE (NEGATIVE); NITRITE URINE NEGATIVE (NEGATIVE); OCCULT BLOOD URINE NEGATIVE (NEGATIVE); PROTEIN URINE NEGATIVE (NEGATIVE); SPECIFIC GRAVITY URINE 1.015 (1.005-1.030); UROBILINOGEN URINE 0.2 E.U./dL (0.2-1.0)
[2022-11-18 18:34] LABS: *AMPHETAMINES SCREEN URINE NEGATIVE (NEGATIVE); *BARBITURATES SCREEN URINE NEGATIVE (NEGATIVE); *BENZODIAZEPINES SCREEN URINE NEGATIVE (NEGATIVE); *COCAINE SCREEN URINE NEGATIVE (NEGATIVE); CANNABINOID URINE SCREEN NEGATIVE (NEGATIVE); METHADONE URINE SCREEN NEGATIVE (NEGATIVE); OPIATES URINE SCREEN NEGATIVE (NEGATIVE); PHENCYCLIDINE URINE SCREEN NEGATIVE (NEGATIVE)
[2022-11-18] MEDS ORDERED: DEXTROSE 50% WATER 50ML SYRINGE IV PRN (21:45)
[2022-11-18] MEDS ORDERED: SODIUM CHLORIDE 0.9% 1,000 ML IV SCH (21:45)
[2022-11-19] VITALS (92 sets, daily range): BP systolic 90–158; BP diastolic 50–125; PULSE 45–79; RESP 8–32; TEMP 97.3–98.7
[2022-11-19] MEDS: DEXT 5%/LACTATED RINGERS 1,000 ML IV SCH (00:35)
[2022-11-19 01:05] LABS: CREATINE KINASE MB FRACTION 2.7 ng/mL (0.5-3.6)
[2022-11-19 05:31] LABS: BASOPHILS % 0.9 % (0.0-2.0); EOSINOPHILS % 3.2 % (0.0-5.0); HEMATOCRIT. 34.1 % (42.0-52.0); HEMOGLOBIN. 11.6 g/dL (14.0-18.0); LYMPHOCYTES % 19.5 % (20.0-50.0); MEAN CORPUSCULAR HEMOGLOBIN 31.6 pg (28.0-32.0); MEAN PLATELET VOLUME 6.8 fl (7.4-10.4); MONOCYTES % 10.9 % (2.0-8.0); NEUTROPHILS % 65.5 % (40.0-76.0); PLATELET 170 x1000/uL (130-400); RED BLOOD CELL COUNT 3.67 mill/uL (4.7-6.1)
[2022-11-19 05:42] LABS: CHLORIDE 110 mEq/L (98-107)
[2022-11-19 05:53] LABS: PHOSPHORUS 2.5 mg/dL (2.5-4.9)
[2022-11-19] MEDS: INSULIN LISPRO 100 UNITS/ML SUBCUT SCH ×4 (06:05→20:32)
[2022-11-19] MEDS: BLOOD SUGAR DIAGNOSTIC STRIP TEST SCH ×4 (06:05→20:32)
[2022-11-19] MEDS: PANTOPRAZOLE SODIUM 40 MG/VIAL IV SCH (09:08)
[2022-11-19] MEDS ORDERED: ASPIRIN 81MG TABLET PO SCH (10:15)
[2022-11-19] MEDS ORDERED: CLOPIDOGREL 75MG TABLET PO SCH (10:15)
[2022-11-19] MEDS: ACETAMINOPHEN 325MG TABLET PO PRN ×2 (10:42→22:33)
[2022-11-19] MEDS: ATORVASTATIN CALCIUM 40MG TABLET PO SCH (21:17)
[2022-11-20] VITALS (94 sets, daily range): BP systolic 105–155; BP diastolic 38–92; PULSE 48–93; RESP 5–26; TEMP 97.6–98.2
[2022-11-20 05:34] LABS: BASOPHILS % 1.1 % (0.0-2.0); EOSINOPHILS % 3.4 % (0.0-5.0); HEMATOCRIT. 32.9 % (42.0-52.0); HEMOGLOBIN. 11.1 g/dL (14.0-18.0); LYMPHOCYTES % 20.8 % (20.0-50.0); MEAN CORPUSCULAR HEMOGLOBIN 31.6 pg (28.0-32.0); MEAN CORPUSCULAR VOLUME 93.3 fL (80.0-94.0); MEAN PLATELET VOLUME 6.7 fl (7.4-10.4); MONOCYTES % 10.3 % (2.0-8.0); NEUTROPHILS % 64.4 % (40.0-76.0); PLATELET 182 x1000/uL (130-400); RED BLOOD CELL COUNT 3.53 mill/uL (4.7-6.1); RED CELL DISTRIBUTION WIDTH 16.5 % (11.6-14.6)
[2022-11-20] MEDS: BLOOD SUGAR DIAGNOSTIC STRIP TEST SCH ×4 (05:58→20:36)
[2022-11-20] MEDS: INSULIN LISPRO 100 UNITS/ML SUBCUT SCH ×4 (05:58→20:36)
[2022-11-20] MEDS: PANTOPRAZOLE SODIUM 40 MG/VIAL IV SCH (08:49)
[2022-11-20] MEDS: DOCUSATE SODIUM 100MG CAPSULE PO PRN (08:49)
[2022-11-20 15:12] LABS: HEPATITIS B SURFACE ANTIGEN NEGATIVE
[2022-11-20] MEDS: ACETAMINOPHEN 325MG TABLET PO PRN (18:52)
[2022-11-20] MEDS: ATORVASTATIN CALCIUM 40MG TABLET PO SCH (20:40)
[2022-11-20] MEDS ORDERED: KETOROLAC 15MG/ML VIAL IV NR (22:00)
[2022-11-21] VITALS (63 sets, daily range): BP systolic 73–143; BP diastolic 41–89; PULSE 47–70; RESP 4–28; TEMP 97.5–98.2
[2022-11-21] MEDS: HYDROCODONE/ACETAMINOPHEN 5/325MG TABLET PO PRN ×2 (01:26→11:46)
[2022-11-21 05:47] LABS: HEMATOCRIT 33.1 % (42.0-52.0); HEMOGLOBIN 11.1 g/dL (14.0-18.0); MEAN CORPUSCULAR HEMOGLOBIN 31.2 pg (28.0-32.0); MEAN CORPUSCULAR VOLUME 92.6 fL (80.0-94.0); PLATELET 178 x1000/uL (130-400); RED BLOOD CELL COUNT 3.57 mill/uL (4.7-6.1); RED CELL DISTRIBUTION WIDTH 16.8 % (11.6-14.6)
[2022-11-21 05:59] LABS: PHOSPHORUS 3.3 mg/dL (2.5-4.9)
[2022-11-21] MEDS: BLOOD SUGAR DIAGNOSTIC STRIP TEST SCH ×4 (07:30→21:00)
[2022-11-21] MEDS ORDERED: SODIUM CHLORIDE 0.45% 1,000 ML IV SCH (07:45)
[2022-11-21] MEDS: INSULIN LISPRO 100 UNITS/ML SUBCUT SCH ×4 (08:00→21:00)
[2022-11-21] MEDS: PANTOPRAZOLE SODIUM 40 MG/VIAL IV SCH (08:59)
[2022-11-21] MEDS: SODIUM CHLORIDE 0.9% 1,000 ML IV SCH ×2 (08:59→17:28)
[2022-11-21] MEDS ORDERED: GABAPENTIN SOLN 300MG/6ML UDC PO SCH (09:00)
[2022-11-21] MEDS ORDERED: LACTULOSE 20G/30ML UDC PO NR (09:45)
[2022-11-21] MEDS ORDERED: NALOXONE HCL 0.4MG/ML VIAL IV PRN (09:45)
[2022-11-21] MEDS: GABAPENTIN 300MG CAPSULE PO SCH ×2 (17:26→22:35)
[2022-11-21] MEDS: ATORVASTATIN CALCIUM 40MG TABLET PO SCH (22:35)
[2022-11-22 04:00] VITALS: BP 133/71; PULSE 58; RESP 16; TEMP 97.7
[2022-11-22] MEDS: SODIUM CHLORIDE 0.9% 1,000 ML IV SCH ×2 (04:00→13:09)
[2022-11-22] MEDS: BLOOD SUGAR DIAGNOSTIC STRIP TEST SCH ×4 (06:16→21:00)
[2022-11-22 08:00] VITALS: BP 144/20; PULSE 66; RESP 14; TEMP 98.9
[2022-11-22] MEDS: GABAPENTIN 300MG CAPSULE PO SCH ×3 (09:31→21:23)
[2022-11-22] MEDS: PANTOPRAZOLE SODIUM 40 MG/VIAL IV SCH (09:32)
[2022-11-22 12:00] VITALS: BP 135/56; RESP 15; TEMP 98.2
[2022-11-22] MEDS: INSULIN LISPRO 100 UNITS/ML SUBCUT SCH ×3 (12:22→21:00)
[2022-11-22 16:00] VITALS: BP 151/73; PULSE 66; RESP 15; TEMP 98.7
[2022-11-22 20:00] VITALS: BP 124/60; PULSE 58; RESP 19; TEMP 98.4
[2022-11-22] MEDS: ATORVASTATIN CALCIUM 40MG TABLET PO SCH (21:23)
[2022-11-23] VITALS: BP 153/72; PULSE 52; RESP 18; TEMP 97.7
[2022-11-23] MEDS: ACETAMINOPHEN 325MG TABLET PO PRN ×2 (02:39→20:57)
[2022-11-23 04:00] VITALS: BP 153/94; PULSE 60; RESP 19; TEMP 98.2
[2022-11-23] MEDS: BLOOD SUGAR DIAGNOSTIC STRIP TEST SCH ×4 (06:25→20:50)
[2022-11-23] MEDS: INSULIN LISPRO 100 UNITS/ML SUBCUT SCH ×4 (06:52→20:50)
[2022-11-23 08:00] VITALS: BP 134/89; PULSE 61; RESP 18; TEMP 97.5
[2022-11-23] MEDS: GABAPENTIN 300MG CAPSULE PO SCH ×3 (09:58→20:52)
[2022-11-23] MEDS: PANTOPRAZOLE SODIUM 40 MG/VIAL IV SCH (09:58)
[2022-11-23 12:00] VITALS: BP 121/67; PULSE 58; RESP 18; TEMP 97.7
[2022-11-23] MEDS: DOCUSATE SODIUM 100MG CAPSULE PO PRN (12:58)
[2022-11-23 16:00] VITALS: BP 124/67; PULSE 56; RESP 18; TEMP 98.1
[2022-11-23 20:00] VITALS: BP 126/63; PULSE 67; RESP 20; TEMP 98.2
[2022-11-23] MEDS: ATORVASTATIN CALCIUM 40MG TABLET PO SCH (20:52)
[2022-11-24] VITALS: BP 130/80; PULSE 92; RESP 18; TEMP 98.4
[2022-11-24] MEDS: ACETAMINOPHEN 325MG TABLET PO PRN ×2 (01:05→20:32)
[2022-11-24 04:00] VITALS: BP 127/60; PULSE 60; RESP 18; TEMP 98.4
[2022-11-24] MEDS: BLOOD SUGAR DIAGNOSTIC STRIP TEST SCH ×4 (06:13→20:34)
[2022-11-24 06:26] LABS: HEMATOCRIT 32.5 % (42.0-52.0); HEMOGLOBIN 11.2 g/dL (14.0-18.0); MEAN CORPUSCULAR VOLUME 92.4 fL (80.0-94.0); PLATELET 176 x1000/uL (130-400); RED BLOOD CELL COUNT 3.51 mill/uL (4.7-6.1); RED CELL DISTRIBUTION WIDTH 16.8 % (11.6-14.6)
[2022-11-24] MEDS: INSULIN LISPRO 100 UNITS/ML SUBCUT SCH ×4 (06:43→21:00)
[2022-11-24 08:00] VITALS: BP 112/59; PULSE 54; RESP 18; TEMP 98.4
[2022-11-24] MEDS ORDERED: KETOROLAC 15MG/ML VIAL IV NR (09:00)
[2022-11-24 12:00] VITALS: BP 126/81; PULSE 57; RESP 19; TEMP 97.5
[2022-11-24] MEDS: FAMOTIDINE 20MG TABLET PO SCH (13:36)
[2022-11-24] MEDS: GABAPENTIN 300MG CAPSULE PO SCH ×3 (13:36→20:32)
[2022-11-24] MEDS: DOCUSATE SODIUM 100MG CAPSULE PO PRN (13:37)
[2022-11-24 16:00] VITALS: BP 124/69; PULSE 55; RESP 19; TEMP 97.9
[2022-11-24 20:00] VITALS: BP 117/67; PULSE 69; RESP 18; TEMP 98
[2022-11-24] MEDS: ATORVASTATIN CALCIUM 40MG TABLET PO SCH (20:32)
[2022-11-25] VITALS: BP 120/59; PULSE 56; RESP 17; TEMP 97.5
[2022-11-25 04:00] VITALS: BP 119/67; PULSE 61; RESP 17; TEMP 98.1
[2022-11-25] MEDS: BLOOD SUGAR DIAGNOSTIC STRIP TEST SCH ×4 (06:21→20:28)
[2022-11-25] MEDS: INSULIN LISPRO 100 UNITS/ML SUBCUT SCH ×4 (06:21→20:28)
[2022-11-25 08:00] VITALS: BP 127/74; PULSE 67; RESP 16; TEMP 98.1
[2022-11-25] MEDS: DOCUSATE SODIUM 100MG CAPSULE PO PRN (10:16)
[2022-11-25] MEDS: FAMOTIDINE 20MG TABLET PO SCH (10:16)
[2022-11-25] MEDS: GABAPENTIN 400MG CAPSULE PO SCH ×3 (10:16→18:21)
[2022-11-25 12:00] VITALS: BP 108/78; PULSE 58; RESP 15; TEMP 97.5
[2022-11-25 16:00] VITALS: BP 104/59; PULSE 78; RESP 16; TEMP 98.4
[2022-11-25 20:00] VITALS: BP 115/68; PULSE 62; RESP 18; TEMP 97.8
[2022-11-25] MEDS ORDERED: IPRATROPIUM/ALBUTEROL 0.5-3(2.5)MG/3ML NEB NEB PRN (20:00)
[2022-11-25] MEDS: ATORVASTATIN CALCIUM 40MG TABLET PO SCH (20:39)
[2022-11-25] MEDS: GABAPENTIN 300MG CAPSULE PO SCH (20:39)
[2022-11-25] MEDS: ACETAMINOPHEN 325MG TABLET PO PRN (22:32)
[2022-11-26] VITALS: BP 119/67; PULSE 74; RESP 20; TEMP 97.7
[2022-11-26 04:00] VITALS: BP 124/82; PULSE 54; RESP 20; TEMP 98
[2022-11-26] MEDS: ACETAMINOPHEN 325MG TABLET PO PRN ×2 (04:14→13:03)
[2022-11-26 06:14] LABS: HEMOGLOBIN 11.1 g/dL (14.0-18.0); MEAN CORPUSCULAR HEMOGLOBIN 31.5 pg (28.0-32.0); MEAN CORPUSCULAR VOLUME 93.3 fL (80.0-94.0); PLATELET 182 x1000/uL (130-400); RED BLOOD CELL COUNT 3.54 mill/uL (4.7-6.1); RED CELL DISTRIBUTION WIDTH 16.7 % (11.6-14.6)
[2022-11-26 06:19] LABS: PHOSPHORUS 3.2 mg/dL (2.5-4.9)
[2022-11-26] MEDS: INSULIN LISPRO 100 UNITS/ML SUBCUT SCH ×4 (06:28→20:01)
[2022-11-26] MEDS: BLOOD SUGAR DIAGNOSTIC STRIP TEST SCH ×4 (06:28→20:01)
[2022-11-26 08:00] VITALS: BP 140/81; PULSE 85; RESP 22; TEMP 97.9
[2022-11-26] MEDS ORDERED: ALBUTEROL (0.083%) 2.5MG/3ML NEB HHN NR (08:00)
[2022-11-26] MEDS ORDERED: SODIUM POLYSTYRENE SULFONATE 15 G/60 ML BOT PO NR (08:00)
[2022-11-26] MEDS: GABAPENTIN 400MG CAPSULE PO SCH ×3 (08:25→17:00)
[2022-11-26] MEDS: FAMOTIDINE 20MG TABLET PO SCH (08:25)
[2022-11-26 09:04] VITALS: PULSE 81; RESP 20; O2SAT 95
[2022-11-26] MEDS ORDERED: HYDROCODONE/ACETAMINOPHEN 5/325MG TABLET PO PRN (09:45)
[2022-11-26] MEDS ORDERED: NALOXONE HCL 0.4MG/ML VIAL IV PRN (10:00)
[2022-11-26 16:00] VITALS: BP 102/67; PULSE 60; RESP 20; TEMP 98.6
[2022-11-26] MEDS: GABAPENTIN 300MG CAPSULE PO SCH (18:39)
[2022-11-26 20:00] VITALS: BP 111/63; PULSE 66; RESP 18; TEMP 98.1
[2022-11-26] MEDS: ATORVASTATIN CALCIUM 40MG TABLET PO SCH (20:05)
[2022-11-27] VITALS: BP 119/64; PULSE 59; RESP 16; TEMP 98.6
[2022-11-27] MEDS: ACETAMINOPHEN 325MG TABLET PO PRN (02:54)
[2022-11-27 04:00] VITALS: BP 109/58; PULSE 56; RESP 18; TEMP 97.9
[2022-11-27 05:49] LABS: BASOPHILS % 0.6 % (0.0-2.0); EOSINOPHILS % 3.8 % (0.0-5.0); HEMATOCRIT. 32.1 % (42.0-52.0); HEMOGLOBIN. 10.9 g/dL (14.0-18.0); LYMPHOCYTES % 17.6 % (20.0-50.0); MEAN CORPUSCULAR HEMOGLOBIN 31.8 pg (28.0-32.0); MEAN CORPUSCULAR VOLUME 93.8 fL (80.0-94.0); MEAN PLATELET VOLUME 6.8 fl (7.4-10.4); MONOCYTES % 9.4 % (2.0-8.0); NEUTROPHILS % 68.6 % (40.0-76.0); PLATELET 170 x1000/uL (130-400); RED BLOOD CELL COUNT 3.43 mill/uL (4.7-6.1); RED CELL DISTRIBUTION WIDTH 16.8 % (11.6-14.6)
[2022-11-27] MEDS: INSULIN LISPRO 100 UNITS/ML SUBCUT SCH ×2 (06:23→12:40)
[2022-11-27] MEDS: BLOOD SUGAR DIAGNOSTIC STRIP TEST SCH ×2 (06:23→12:10)
[2022-11-27 08:00] VITALS: BP 119/59; PULSE 59; RESP 18; TEMP 97.7
[2022-11-27] MEDS: GABAPENTIN 400MG CAPSULE PO SCH ×2 (08:50→14:01)
[2022-11-27] MEDS: FAMOTIDINE 20MG TABLET PO SCH (08:50)
[2022-11-27 12:00] VITALS: BP 120/60; PULSE 58; RESP 18; TEMP 98
[2022-11-27 12:30] VITALS: BP 111/60; PULSE 59; RESP 20; TEMP 97.5
[2022-11-27] MEDS ORDERED: GABA-532 PO (13:15)
[2022-11-27] MEDS ORDERED: LIP40 PO (13:15)
[2022-11-27 16:03] VITALS: BP 111/64; PULSE 59; TEMP 97.5; O2SAT 99
== END 2022-11-27 17:57 | disposition home health service (06) | DRG 45 ==
LOC: ER 09:11 → MICUSO 10:34 → EDBEDREQSVC 10:54 → SUPCPDRO 11:06 → EDBEDREQTM 11:20 → EDBEDREQ 11:20 → 8WST 11-21 15:26
PROVIDERS: ADMIT Emergency Medicine; ATTEND Internal Medicine
DX: I63.81 Other cerebral infarction due to occlusion or stenosis of small artery (principal); I60.9 Nontraumatic subarachnoid hemorrhage, unspecified; I61.1 Nontraumatic intracerebral hemorrhage in hemisphere, cortical; N17.9 Acute kidney failure, unspecified; G25.5 Other chorea; G81.91 Hemiplegia, unspecified affecting right dominant side; D64.9 Anemia, unspecified; E11.22 Type 2 diabetes mellitus with diabetic chronic kidney disease; G89.0 Central pain syndrome; R29.706 NIHSS score 6; M17.0 Bilateral primary osteoarthritis of knee; E78.5 Hyperlipidemia, unspecified; I12.9 Hypertensive chronic kidney disease with stage 1 through stage 4 chronic kidney disease, or unspecified chronic kidney disease; M60.9 Myositis, unspecified; Z79.82 Long term (current) use of aspirin; Z79.899 Other long term (current) drug therapy; N18.30 Chronic kidney disease, stage 3 unspecified; Z88.1 Allergy status to other antibiotic agents; Z88.8 Allergy status to other drugs, medicaments and biological substances; Z86.73 Personal history of transient ischemic attack (TIA), and cerebral infarction without residual deficits; Z90.5 Acquired absence of kidney; Z85.528 Personal history of other malignant neoplasm of kidney; Z82.49 Family history of ischemic heart disease and other diseases of the circulatory system; Z82.3 Family history of stroke
CPT/HCPCS: 36415; 70496; 70498; 70551; 71045; 76770; 80048; 80053; 80061; 80305; 80320; 81003; 82550; 82553; 82607; 82746; 82962; 83036; 83540; 83550; 83735; 84100; 84439; 84443; 84484; 85025; 85027; 86803; 87340; 92610; 93005; 93306; 93880; 93970; 94640; 97112; 97162; 97166; 97530; 99291; A6261; C9113; J1885; J2405; J2997; J7030; Q9967; G0480

== ENCOUNTER 2022-12-15 15:47 | Emergency (ER) | payer MEDICARE, MEDICAID ==
[~2022-12-15] VITALS: Ht 172.7 cm; Wt 79.0 kg
[~2022-12-15 15:47] MED LIST changes: +GABA-532 PO; +LIP40 PO
[2022-12-15 15:54] VITALS: O2SAT 96
[2022-12-15] MEDS ORDERED: IOHEXOL-350 100 ML BOTTLE ONE (16:44)
[2022-12-15 17:00] LABS: INR 1.1; PROTHROMBIN TIME 11.7 sec (9.6-11.0)
[2022-12-15 17:03] LABS: BASOPHILS % 1.4 % (0.0-2.0); EOSINOPHILS % 10.3 % (0.0-5.0); HEMATOCRIT. 29.4 % (42.0-52.0); LYMPHOCYTES % 15.3 % (20.0-50.0); MEAN CORPUSCULAR HEMOGLOBIN 31.3 pg (28.0-32.0); MEAN CORPUSCULAR HGB CONC 33.9 g/dL (31.0-37.0); MEAN CORPUSCULAR VOLUME 92.1 fL (80.0-94.0); MEAN PLATELET VOLUME 7.3 fl (7.4-10.4); MONOCYTES % 8.5 % (2.0-8.0); NEUTROPHILS % 64.5 % (40.0-76.0); PLATELET 180 x1000/uL (130-400); RED BLOOD CELL COUNT 3.19 mill/uL (4.7-6.1); RED CELL DISTRIBUTION WIDTH 16.9 % (11.6-14.6); WHITE BLOOD COUNT 3.6 x1000/uL (4.5-11.0)
[2022-12-15 17:14] LABS: ALBUMIN 3.3 g/dL (3.4-5.0); CALCIUM 8.3 mg/dL (8.5-10.1); CARBON DIOXIDE 23 mEq/L (21-32); CHLORIDE 107 mEq/L (98-107); ETHANOL BLOOD < 10 mg/dL (-10); GLUCOSE 89 mg/dL (70-105); INDEX HEMOLYSI 1 (1-3); INDEX ICTERIC 1 (1-4); INDEX LIPEMIC 1 (1-3); POTASSIUM 4.9 mEq/L (3.5-5.1); SODIUM 135 mEq/L (136-145); UREA NITROGEN BLOOD 24 mg/dL (7-21)
[2022-12-15 17:20] LABS: ALANINE AMINOTRANSFERASE 34 IU/L (13-61); ASPARTATE AMINOTRANSFERASE 26 IU/L (15-37); BILIRUBIN TOTAL 0.3 mg/dL (0.1-1.0); CREATININE 2.2 mg/dL (0.6-1.3); PROTEIN TOTAL 6.4 g/dL (6.0-8.3); TROPONIN I HIGH SENSITIVITY 6 ng/L (<78)
[2022-12-15 18:55] LABS: CLARITY URINE CLEAR (CLEAR); COLOR URINE YELLOW (YELLOW); GLUCOSE URINE NEGATIVE (NEGATIVE); KETONES URINE NEGATIVE (NEGATIVE); LEUKOCYTE ESTERASE URINE NEGATIVE (NEGATIVE); NITRITE URINE NEGATIVE (NEGATIVE); OCCULT BLOOD URINE NEGATIVE (NEGATIVE); PROTEIN URINE NEGATIVE (NEGATIVE); SPECIFIC GRAVITY URINE 1.023 (1.005-1.030); UROBILINOGEN URINE 0.2 E.U./dL (0.2-1.0)
[2022-12-15 19:08] LABS: *AMPHETAMINES SCREEN URINE NEGATIVE (NEGATIVE); *BARBITURATES SCREEN URINE NEGATIVE (NEGATIVE); *BENZODIAZEPINES SCREEN URINE NEGATIVE (NEGATIVE); *COCAINE SCREEN URINE NEGATIVE (NEGATIVE); CANNABINOID URINE SCREEN NEGATIVE (NEGATIVE); ECSTASY MDMA SCREEN URINE NEGATIVE (NEGATIVE); METHADONE URINE SCREEN NEGATIVE (NEGATIVE); OPIATES URINE SCREEN NEGATIVE (NEGATIVE); PHENCYCLIDINE URINE SCREEN NEGATIVE (NEGATIVE)
[2022-12-16 05:56] VITALS: BP 149/77; PULSE 57; RESP 16; TEMP 98.1
== END 2022-12-16 06:11 | disposition home or self-care (01) ==
LOC: ER 15:47
DX: R53.1 Weakness (principal); I10 Essential (primary) hypertension; R51.9 Headache, unspecified; Z88.0 Allergy status to penicillin; Z88.6 Allergy status to analgesic agent; Z88.1 Allergy status to other antibiotic agents; Z79.899 Other long term (current) drug therapy; Z98.890 Other specified postprocedural states; Z79.82 Long term (current) use of aspirin; Z86.73 Personal history of transient ischemic attack (TIA), and cerebral infarction without residual deficits
CPT/HCPCS: 80053; 80305; 81003; 80320; 83880; 85025; 85610; 84484; 36415; 71045; 70496; 70498; 70450; 93005; 99285; Q9967; Z7610; G0480

== ENCOUNTER 2023-01-30 15:54 | Emergency (ER) | payer MEDICARE, MEDICAID ==
[~2023-01-30] VITALS: Ht 172.7 cm; Wt 75.0 kg
[~2023-01-30 15:54] MED LIST changes: +IMIT25 MT; -LOSA100T33 PO
[2023-01-30 15:58] VITALS: O2SAT 97
[2023-01-30] MEDS ORDERED: ACETAMINOPHEN 325MG TABLET PO ONE (16:15)
[2023-01-31 01:13] VITALS: BP 143/62; PULSE 70; RESP 18; TEMP 98.7
== END 2023-01-31 01:14 | disposition home or self-care (01) ==
LOC: ER 17:35
DX: R51.9 Headache, unspecified (principal); E78.00 Pure hypercholesterolemia, unspecified; I10 Essential (primary) hypertension; Z86.73 Personal history of transient ischemic attack (TIA), and cerebral infarction without residual deficits; Z88.6 Allergy status to analgesic agent; Z88.8 Allergy status to other drugs, medicaments and biological substances
CPT/HCPCS: 99284

== ENCOUNTER 2023-04-19 08:45 | Emergency (ER) | payer MEDICARE, MEDICAID ==
[~2023-04-19] VITALS: Ht 162.6 cm; Wt 71.0 kg
[~2023-04-19 08:45] MED LIST changes: +DOCU-150 PO; -DOXA2TAB2 PO; +LACT10SO7 PO; -LIP40 PO
[2023-04-19 09:05] VITALS: O2SAT 100
[2023-04-19] MEDS ORDERED: HYDROCODONE/ACETAMINOPHEN 10/325MG TABLET PO ONE (10:30)
[2023-04-19] MEDS ORDERED: HYDROCODONE/ACETAMINOPHEN 10/325MG TABLET PO NR (13:00)
[2023-04-19 13:26] VITALS: BP 96/69; PULSE 59; RESP 16; TEMP 98.1
== END 2023-04-19 13:27 | disposition home or self-care (01) ==
LOC: ER 09:36
DX: S00.81XA Abrasion of other part of head, initial encounter (principal); E78.00 Pure hypercholesterolemia, unspecified; I10 Essential (primary) hypertension; Z98.890 Other specified postprocedural states; Z86.73 Personal history of transient ischemic attack (TIA), and cerebral infarction without residual deficits; W18.39XA Other fall on same level, initial encounter; Y93.89 Activity, other specified; Y92.89 Other specified places as the place of occurrence of the external cause; Y99.8 Other external cause status; Z88.8 Allergy status to other drugs, medicaments and biological substances; Z88.6 Allergy status to analgesic agent
CPT/HCPCS: 93005; 99284